=== PATIENT | male | born 1980 | race Hispanic/Latino ===

== ENCOUNTER 2020-01-26 22:12 | Emergency (ER) | payer OTHER ==
[2020-01-26] MEDS ORDERED: ACETAMINOPHEN EXTRA STRENGTH 500 MG TABLET ONE (22:32)
[2020-01-26] MEDS ORDERED: LIDOCAINE HCL 1% 20 ML VIAL ONE (22:32)
[2020-01-26] MEDS ORDERED: TETANUS/DIPHTHERIA TOXOID [ADULT] 0.5 ML VIAL IM ONE (22:33)
[2020-01-26] MEDS ORDERED: OCTYL 2-CYANOACRYLATE 1 EACH TP ONE (22:34)
== END 2020-01-26 23:25 | disposition home or self-care (01) ==
LOC: EDH 22:12
DX: S61.213A Laceration without foreign body of left middle finger without damage to nail, initial encounter (principal); S61.215A Laceration without foreign body of left ring finger without damage to nail, initial encounter; X58.XXXA Exposure to other specified factors, initial encounter; Y93.89 Activity, other specified; Y92.89 Other specified places as the place of occurrence of the external cause; Y99.8 Other external cause status
CPT/HCPCS: 12042; 73130; 90471; 90714